=== PATIENT | female | born 2000 | race Caucasian/White ===

== ENCOUNTER 2020-06-25 12:14 | Outpatient (CLI) | payer OTHER | END 2020-06-25 12:55 | disposition home or self-care (01) | LOC: GENOP 12:14 | DX: O99.891 Other specified diseases and conditions complicating pregnancy (principal); M51.26 Other intervertebral disc displacement, lumbar region; Z3A.35 35 weeks gestation of pregnancy ==

== ENCOUNTER 2020-07-31 16:58 | Inpatient (IN) | payer OTHER ==
[~2020-07-31] VITALS: Ht 170.2 cm; Wt 92.1 kg
[2020-07-31] MEDS ORDERED: PRENATAL VITAM1 EAC3 PO (17:48)
[2020-07-31] MEDS ORDERED: ZOLOFT50 MG PO (17:49)
[2020-07-31 18:41] LABS: HEMOGLOBIN 11.5 gm/dl (12.3-15.3); RED BLOOD COUNT 3.6 M/UL (4.00-5.10); WHITE BLOOD COUNT 11.4 K/UL (4.5-11.0)
[2020-08-01] MEDS ORDERED: COLACE 100MG C100 MG PO (16:50)
[2020-08-01] MEDS ORDERED: IBUPROFEN600 MG PO (16:50)
[2020-08-02 05:56] LABS: HEMOGLOBIN 10.9 gm/dl (12.3-15.3)
[2020-08-03] MEDS ORDERED: HYDROCODONE-AC1 EACH PO (11:10)
== END 2020-08-03 15:46 | disposition home or self-care (01) | DRG 807 ==
LOC: GENOP 16:58 → OB 17:44
PROVIDERS: Obstetrics & Gynecology; ADMIT Obstetrics & Gynecology
PROC: 0U7C7ZZ Dilation of Cervix, Via Natural or Artificial Opening (ICD-10-PCS; 2020-07-31)
PROC: 10E0XZZ Delivery of Products of Conception, External Approach (ICD-10-PCS; principal; 2020-08-01)
PROC: 10907ZC Drainage of Amniotic Fluid, Therapeutic from Products of Conception, Via Natural or Artificial Opening (ICD-10-PCS; 2020-08-01)
PROC: 0W8NXZZ Division of Female Perineum, External Approach (ICD-10-PCS; 2020-08-01)
PROC: 3E0234Z Introduction of Serum, Toxoid and Vaccine into Muscle, Percutaneous Approach (ICD-10-PCS; 2020-08-02)
DX: O75.89 Other specified complications of labor and delivery (principal); Z37.0 Single live birth; Z3A.39 39 weeks gestation of pregnancy; R01.1 Cardiac murmur, unspecified; O99.344 Other mental disorders complicating childbirth; F32.9 Major depressive disorder, single episode, unspecified; Z23 Encounter for immunization
CPT/HCPCS: 36415; 81001; 82800; 85014; 85018; 85025; 90471; 90715; J2405; J2590; J7120